=== PATIENT | female | born 1970 | race Caucasian/White ===

== ENCOUNTER 2017-09-04 13:24 | Emergency (ER) | payer OTHER ==
[2017-09-04 13:33] VITALS: BP 157/68; PULSE 69; RESP 20; TEMP 98.2
[2017-09-04] MEDS ORDERED: KETOROLAC 60 MG/2 ML VIAL IM STA (13:45)
[2017-09-04] MEDS ORDERED: ORPHENADRINE 30 MG/ML 2 ML VIAL IM STA (13:45)
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
--- NOTE | 2017-09-04 14:16 | XR ---
EXAMINATION TYPE: XR lumbar spine 2 or 3V DATE OF EXAM: 09/04/2017 CLINICAL HISTORY: pain TECHNIQUE: Three views of the lumbar spine are submitted. COMPARISON: None. FINDINGS: No evidence for compression fracture. Grade 1 anterolisthesis L4 and L5 measuring 3.2 mm in greatest length anterolisthesis L5 on S1 measuring 4.9 mm. Severe facet joint arthropathy. Degenerative disc s pace narrowing lower lumbar spine. IMPRESSION: Degenerative change and spondylolisthesis as noted.
== END 2017-09-04 14:39 | disposition home or self-care (01) ==
LOC: EC 13:24
DX: S39.012A Strain of muscle, fascia and tendon of lower back, initial encounter (principal); M43.16 Spondylolisthesis, lumbar region; M79.7 Fibromyalgia; I10 Essential (primary) hypertension; F31.9 Bipolar disorder, unspecified; F41.9 Anxiety disorder, unspecified; F43.10 Post-traumatic stress disorder, unspecified; Z87.891 Personal history of nicotine dependence; Z79.1 Long term (current) use of non-steroidal anti-inflammatories (NSAID); Z79.51 Long term (current) use of inhaled steroids; Z79.82 Long term (current) use of aspirin; Z79.899 Other long term (current) drug therapy; Z98.890 Other specified postprocedural states; Z88.5 Allergy status to narcotic agent; Z88.8 Allergy status to other drugs, medicaments and biological substances; Z91.012 Allergy to eggs; Z91.048 Other nonmedicinal substance allergy status; X50.1XXA Overexertion from prolonged static or awkward postures, initial encounter; Y92.009 Unspecified place in unspecified non-institutional (private) residence as the place of occurrence of the external cause
CPT/HCPCS: 99283; 96372 ×2; 72100; J2360; J1885

== ENCOUNTER 2017-12-05 13:05 | Emergency (ER) | payer OTHER ==
[2017-12-05 13:12] VITALS: BP 130/65; PULSE 78; RESP 18; TEMP 98
[2017-12-05] MEDS ORDERED: CYCLOBENZAPRINE 10MG STARTER 3 TAB BTL PO STA (13:46)
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
== END 2017-12-05 14:09 | disposition home or self-care (01) ==
LOC: EC 13:05
DX: M54.5 Low back pain (principal); G89.29 Other chronic pain; M79.7 Fibromyalgia; I10 Essential (primary) hypertension; F41.9 Anxiety disorder, unspecified; F32.9 Major depressive disorder, single episode, unspecified; F43.10 Post-traumatic stress disorder, unspecified; Z87.891 Personal history of nicotine dependence; Z79.1 Long term (current) use of non-steroidal anti-inflammatories (NSAID); Z79.82 Long term (current) use of aspirin; Z79.51 Long term (current) use of inhaled steroids; Z79.899 Other long term (current) drug therapy; Z91.048 Other nonmedicinal substance allergy status; Z88.8 Allergy status to other drugs, medicaments and biological substances; Z91.012 Allergy to eggs
CPT/HCPCS: 99283

== ENCOUNTER 2018-03-06 18:05 | Inpatient (IN) | payer MEDICAID, OTHER ==
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
[2018-03-06] MEDS ORDERED: IBUPROFEN 600 MG TAB PO STA (19:44)
[2018-03-06 19:49] LABS: Amphetamine Screen,Urine Not Detected (NotDetected); Barbiturate Screen,Urine Not Detected (NotDetected); Benzodiazepines Screen,Urine Not Detected (NotDetected); Cocaine Screen,Urine Not Detected (NotDetected); Methadone Screen, Urine Not Detected (NotDetected); Opiate Screen,Urine Not Detected (NotDetected); Oxycodone Screen, Urine Not Detected (NotDetected); Phencyclidine Screen,Urine Not Detected (NotDetected); Tricyclic Antidepressant,Urine Not Detected (NotDetected); Urn Cannabinoid Scrn Not Detected (NotDetected)
[2018-03-06 21:02] LABS: Glucose,Whole Blood 106 mg/dL (75-99)
[2018-03-06] MEDS ORDERED: MAG HYDROX/AL HYDROX/SIMETH 30 ML CUP PO PRN (21:24)
[2018-03-06] MEDS ORDERED: ALBUTEROL INHALER 60 PUFF/8 GM INHALER INHALATION PRN (21:34)
[2018-03-06] MEDS ORDERED: ARIPiprazole 15 MG TAB PO SCH (21:45)
[2018-03-06] MEDS ORDERED: INSULIN DETEMIR 100 UNIT/ML 10 ML VIAL SQ SCH (21:45)
[2018-03-06] MEDS: lamoTRIgine 100 MG TAB PO SCH (22:09)
[2018-03-07] MEDS: IBUPROFEN 800 MG TAB PO PRN ×3 (02:15→18:47)
[2018-03-07] MEDS: ACETAMINOPHEN TAB 325 MG TAB PO PRN ×2 (05:51→16:39)
[2018-03-07 06:51] LABS: Glucose,Whole Blood 99 mg/dL (75-99)
[2018-03-07] MEDS: DESVENLAFAXINE SUCCINATE 50 MG TAB.ER.24H PO SCH (08:29)
[2018-03-07] MEDS: FAMOTIDINE 20 MG TAB PO SCH (08:29)
[2018-03-07] MEDS: CALCIUM CARBONATE 500 MG CHEWABLE PO SCH (08:29)
[2018-03-07] MEDS: ATENOLOL 50 MG TAB PO SCH (08:29)
[2018-03-07] MEDS: lamoTRIgine 100 MG TAB PO SCH ×2 (08:29→21:08)
[2018-03-07] MEDS: ATORVASTATIN 40 MG TAB PO SCH (08:29)
[2018-03-07] MEDS: clonazePAM 1 MG TAB PO SCH ×2 (08:29→21:11)
[2018-03-07] MEDS: metFORMIN 500 MG TAB PO SCH ×2 (08:29→21:10)
[2018-03-07] MEDS: LORATADINE 10 MG TAB PO SCH (08:30)
[2018-03-07] MEDS: LISINOPRIL 20 MG TAB PO SCH (08:30)
[2018-03-07] MEDS: CHLORTHALIDONE 25 MG TAB PO SCH (08:30)
[2018-03-07] MEDS: FLUTICASONE 50MCG/SPRAY NASAL 16GM EA NOSTRIL SCH (08:38)
[2018-03-07 08:39] LABS: Basophils % (A) 0 %; Eosinophils # (A) 0.1 k/uL (0-0.7); Eosinophils % (A) 2 %; HCT 35.2 % (34.0-46.0); HGB 11.8 gm/dL (11.4-16.0); Lymphocytes # (A) 1.6 k/uL (1.0-4.8); Lymphocytes % (A) 19 %; MCH 26.8 pg (25.0-35.0); MCHC 33.4 g/dL (31.0-37.0); MCV 80.2 fL (80.0-100.0); Mean Platelet Volume 7.2; Monocytes # (A) 0.4 k/uL (0-1.0); Monocytes % (A) 5 %; Neutrophils # (A) 6.2 k/uL (1.3-7.7); Neutrophils % (A) 73 %; Platelet Count 230 k/uL (150-450); RBC 4.39 m/uL (3.80-5.40); RDW 15.9 % (11.5-15.5); WBC 8.5 k/uL (3.8-10.6)
[2018-03-07] MEDS: ASPIRIN 81 MG PO SCH ×2 (08:39→21:11)
[2018-03-07 08:54] LABS: ALT 35 U/L (9-52); AST 28 U/L (14-36); Albumin 3.8 g/dL (3.5-5.0); Alkaline Phosphatase 83 U/L (38-126); Anion Gap 12 mmol/L; Blood Urea Nitrogen 16 mg/dL (7-17); Calcium 9.5 mg/dL (8.4-10.2); Carbon Dioxide 31 mmol/L (22-30); Chloride 97 mmol/L (98-107); Cholesterol 125 mg/dL (<200); Glucose 96 mg/dL (74-99); HDL Cholesterol 32 mg/dL (40-60); LDL Cholesterol,Calculated 52 mg/dL (0-99); Potassium 4.5 mmol/L (3.5-5.1); Sodium 140 mmol/L (137-145); Total Bilirubin 0.3 mg/dL (0.2-1.3); Total Protein 6.4 g/dL (6.3-8.2); Triglycerides 205 mg/dL (<150)
[2018-03-07] MEDS: MULTIVITAMINS, THERA 1 EACH TAB PO SCH (10:32)
[2018-03-07 10:39] LABS: Glucose,Whole Blood 114 mg/dL (75-99)
[2018-03-07 12:12] LABS: Glucose,Whole Blood 96 mg/dL (75-99)
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
[2018-03-07] MEDS ORDERED: POLYETHYLENE GLYCOL 3350 17 GM POWD.PACK PO PRN (15:06)
--- NOTE | 2018-03-07 15:15 | CONS ---
CONSULTATION DATE OF SERVICE: 03/07/2018. REASON FOR CONSULTATION: Advice regarding hypertension and other medical issues requested by Psychiatry. HISTORY OF PRESENT ILLNESS: This 47-year-old woman with a past history hypertension, hyperlipidemia, history of anxiety, bipolar depression, panic disorder, PTSD [facility] was admitted with for psychiatric evaluation. There is no history of fever, rigors. No headache, loss of consciousness, seizures. The patient is complaining of constipation as well as diffuse aches and pains related to DJD which is being relieved by combination of NSAIDs and analgesics. PAST MEDICAL HISTORY: History of hyperlipidemia, hypertension, history pneumonia, history of fibromyalgia, anxiety, bipolar depression, PTSD. MEDICATIONS: 1. Glucophage 500 mg p.o. b.i.d. 2. Lamictal 150 mg p.o. b.i.d. 3. Klonopin 0.5 mg q.i.d. 4. Vitamin B 1 p.o. daily. 5. Claritin 10 mg. 6. Zestril 20 mg daily. 7. Lantus 10 units subcu q.h.s. 8. Motrin 800 mg t.i.d. p.r.n. 9. Flonase 1 spray daily. 10.Pepcid 20 mg daily. 11.Pristiq ER 100 mg p.o. daily. 12.Calcium carbonate 500 mg p.o. daily. 13.Atenolol chlorthalidone 50 mg. 14.Ecotrin 81 mg daily. 15.Ventolin HFA 1-2 puffs q.i.d. p.r.n. 16.Abilify 15 mg q.h.s. ALLERGIES: Are ADHESIVE TAPES, SAPHRIS, EGG, TALWIN, SEROQUEL AND BRINTELLIX. FAMILY HISTORY: History of CHF noted in the family. SOCIAL HISTORY: History of smoking previously. No history of current alcohol intake. REVIEW OF SYSTEMS: ENT: No diminished vision or hearing. CARDIOVASCULAR: No angina. RESPIRATORY: No cough. GI: As mentioned. : No dysuria. NERVOUS SYSTEM: No numbness or weakness. ALLERGY/IMMUNOLOGY: No lymphadenopathy in neck or axillae. MUSCULOSKELETAL: As mentioned earlier. HEMATOLOGY: No history of anemia. ENDOCRINE: Diabetes. CONSTITUTIONAL: As mentioned earlier. DERMATOLOGY: Negative. RHEUMATOLOGY: Negative. PSYCHIATRY: As mentioned earlier. PHYSICAL EXAMINATION: Alert, oriented x3. Pulse 65, blood pressure 120/50, respirations 16, temperature 97.8, pulse ox 96% on room air. HEENT: Conjunctivae normal. Oral mucosa moist. Neck is no jugular venous distention. No carotid bruit. No lymph node enlargement. CARDIOVASCULAR: S1, S2. No S3, no S4. RESPIRATORY: Breath sounds diminished in the bases. No rhonchi. No crackles. ABDOMEN: Soft, obese, nontender. No mass palpable. LEGS: No edema, no swelling. NERVOUS SYSTEM: Higher function as mentioned earlier, moves all 4 limbs, no focal motor or sensory deficit. Cranial nerves 2 through 12 grossly intact. Moves all 4 limbs. no nystagmus No diplopia. No facial deviation. Power is 5/5. Gait is normal. No sensory cerebellar dysfunction. LABS: CBC within normal limits, otherwise glucose 114 and triglycerides 205. ASSESSMENT: 1. Hypertension. 2. Hyperlipidemia. 3. History of pneumonia. 4. History of degenerative joint disease and back pain. 5. Constipation. 6. Anxiety, bipolar, depression, posttraumatic stress disorder. 7. History of nicotine dependence. 8. Obesity with body mass index 48.7. 9. History of fibromyalgia. RECOMMENDATION: This 47-year-old woman with a past history of multiple medical issues, at this time I recommend to continue current management and symptomatic treatment. The blood sugar has been fluctuating between 90 and 100 at this time, appears to be well controlled. Recommend to continue the home dose of insulin, Accu-Cheks a.c. and at bedtime and NovoLog scale. Otherwise, continue the rest of medications and recommend close follow up with the primary physician in the outpatient setting. We will follow the patient closely with you. Thank you for letting us participate in the care of this patient. MMODL / IJN: [id number] / MARIA ELENA
[2018-03-07] MEDS: INSULIN ASPART 100 UNIT/ML 1 ML 10 ML VIAL SQ SCH ×2 (17:40→21:04)
[2018-03-07 17:41] LABS: Glucose,Whole Blood 91 mg/dL (75-99)
[2018-03-07 20:17] LABS: Glucose,Whole Blood 110 mg/dL (75-99)
[2018-03-07 20:31] LABS: Hemoglobin A1C 5.8 % (4.0-6.0)
[2018-03-07] MEDS: INSULIN DETEMIR 100 UNIT/ML 10 ML VIAL SQ SCH (21:08)
[2018-03-07] MEDS: MIRTAZAPINE 15 MG TAB PO SCH (21:10)
[2018-03-07] MEDS: ARIPiprazole 5 MG TAB PO SCH (21:17)
[2018-03-07] MEDS: MAGNESIUM HYDROXIDE 2,400 MG/10 ML CUP PO PRN (22:06)
[2018-03-08 05:31] LABS: Glucose,Whole Blood 114 mg/dL (75-99)
[2018-03-08] MEDS: IBUPROFEN 800 MG TAB PO PRN ×2 (05:40→15:38)
[2018-03-08] MEDS: INSULIN ASPART 100 UNIT/ML 1 ML 10 ML VIAL SQ SCH ×4 (07:39→20:22)
[2018-03-08] MEDS: DESVENLAFAXINE SUCCINATE 50 MG TAB.ER.24H PO SCH (09:30)
[2018-03-08] MEDS: lamoTRIgine 100 MG TAB PO SCH ×2 (09:31→20:21)
[2018-03-08] MEDS: CALCIUM CARBONATE 500 MG CHEWABLE PO SCH (09:31)
[2018-03-08] MEDS: CHLORTHALIDONE 25 MG TAB PO SCH (09:31)
[2018-03-08] MEDS: LISINOPRIL 20 MG TAB PO SCH (09:31)
[2018-03-08] MEDS: ASPIRIN 81 MG PO SCH (09:31)
[2018-03-08] MEDS: FAMOTIDINE 20 MG TAB PO SCH (09:32)
[2018-03-08] MEDS: clonazePAM 1 MG TAB PO SCH ×2 (09:32→20:20)
[2018-03-08] MEDS: LORATADINE 10 MG TAB PO SCH (09:32)
[2018-03-08] MEDS: ATENOLOL 50 MG TAB PO SCH (09:32)
[2018-03-08] MEDS: metFORMIN 500 MG TAB PO SCH ×2 (09:32→20:20)
[2018-03-08] MEDS: MULTIVITAMINS, THERA 1 EACH TAB PO SCH (09:32)
[2018-03-08] MEDS: ATORVASTATIN 40 MG TAB PO SCH (09:32)
[2018-03-08] MEDS: FLUTICASONE 50MCG/SPRAY NASAL 16GM EA NOSTRIL SCH (09:41)
--- NOTE | 2018-03-08 11:19 | P.PN ---
Progress Note - Text Interval history: The patient is found in the dining room she follows me to an interview room. She reports her mood is still depressed and she has hopeless thinking but she feels safe here in the hospital. She states with the addition of Remeron her sleep was excellent last evening. We discussed our continued plan of tapering off of Abilify in titrating the Remeron further. She has been participating in groups. She has no questions or concerns regarding her medications. Staff indicate that the patient has been cooperative and is participating. Mental status exam: The patient is an obese female appearing her stated age. She is mobile with a wheelchair. Eye contact is appropriate speech is fluent spontaneous nonpressured. She reports a depressed mood with some hopeless thinking but feels safe here in the hospital. She is reporting no homicidal ideation intent or plan. She is reporting no auditory or visual hallucinations or specific delusions. There is no observed evidence of psychosis. Insight and judgment grossly intact. Plan: The patient will continue on her current medications. We will monitor her for safety. It seems that she will primarily respond to the milieu given her personality disorder symptoms. Vital signs reviewed. Anticipate she may be appropriate for discharge early next week.
[2018-03-08] MEDS: ACETAMINOPHEN TAB 325 MG TAB PO PRN (12:19)
[2018-03-08 12:39] LABS: Glucose,Whole Blood 90 mg/dL (75-99)
[2018-03-08] MEDS: MAGNESIUM HYDROXIDE 2,400 MG/10 ML CUP PO PRN (13:52)
[2018-03-08 17:05] LABS: Glucose,Whole Blood 107 mg/dL (75-99)
[2018-03-08 17:53] VITALS: BMI 48.6
[2018-03-08 19:44] LABS: Glucose,Whole Blood 141 mg/dL (75-99)
[2018-03-08] MEDS: MIRTAZAPINE 15 MG TAB PO SCH (20:21)
[2018-03-08] MEDS: ARIPiprazole 5 MG TAB PO SCH (20:22)
[2018-03-08] MEDS: INSULIN DETEMIR 100 UNIT/ML 10 ML VIAL SQ SCH (20:26)
[2018-03-09] MEDS: IBUPROFEN 800 MG TAB PO PRN ×3 (01:21→14:42)
[2018-03-09 05:24] LABS: Glucose,Whole Blood 100 mg/dL (75-99)
[2018-03-09] MEDS: INSULIN ASPART 100 UNIT/ML 1 ML 10 ML VIAL SQ SCH ×4 (08:06→20:37)
[2018-03-09] MEDS: FLUTICASONE 50MCG/SPRAY NASAL 16GM EA NOSTRIL SCH (08:37)
[2018-03-09] MEDS: ASPIRIN 81 MG PO SCH (08:37)
[2018-03-09] MEDS: MULTIVITAMINS, THERA 1 EACH TAB PO SCH (08:37)
[2018-03-09] MEDS: LORATADINE 10 MG TAB PO SCH (08:38)
[2018-03-09] MEDS: clonazePAM 1 MG TAB PO SCH ×2 (08:38→20:40)
[2018-03-09] MEDS: metFORMIN 500 MG TAB PO SCH ×2 (08:38→20:40)
[2018-03-09] MEDS: FAMOTIDINE 20 MG TAB PO SCH (08:38)
[2018-03-09] MEDS: LISINOPRIL 20 MG TAB PO SCH (08:38)
[2018-03-09] MEDS: lamoTRIgine 100 MG TAB PO SCH ×2 (08:38→20:38)
[2018-03-09] MEDS: ATENOLOL 50 MG TAB PO SCH (08:40)
[2018-03-09] MEDS: CHLORTHALIDONE 25 MG TAB PO SCH (08:40)
[2018-03-09] MEDS: CALCIUM CARBONATE 500 MG CHEWABLE PO SCH (08:40)
[2018-03-09] MEDS: ATORVASTATIN 40 MG TAB PO SCH (08:40)
[2018-03-09] MEDS: DESVENLAFAXINE SUCCINATE 50 MG TAB.ER.24H PO SCH (08:40)
[2018-03-09] MEDS: ACETAMINOPHEN TAB 325 MG TAB PO PRN ×2 (08:41→14:44)
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
[2018-03-09 12:48] LABS: Glucose,Whole Blood 78 mg/dL (75-99)
[2018-03-09 17:40] LABS: Glucose,Whole Blood 101 mg/dL (75-99)
[2018-03-09 19:44] LABS: Glucose,Whole Blood 129 mg/dL (75-99)
[2018-03-09] MEDS: PRAZOSIN 1 MG CAP PO SCH (20:38)
[2018-03-09] MEDS: ARIPiprazole 5 MG TAB PO SCH (20:40)
[2018-03-09] MEDS: MIRTAZAPINE 15 MG TAB PO SCH (20:43)
[2018-03-09] MEDS: INSULIN DETEMIR 100 UNIT/ML 10 ML VIAL SQ SCH (22:01)
[2018-03-10] MEDS: IBUPROFEN 800 MG TAB PO PRN ×3 (02:52→20:16)
[2018-03-10] MEDS: ACETAMINOPHEN TAB 325 MG TAB PO PRN (02:53)
[2018-03-10 06:26] LABS: Glucose,Whole Blood 107 mg/dL (75-99)
[2018-03-10] MEDS: FAMOTIDINE 20 MG TAB PO SCH (08:50)
[2018-03-10] MEDS: CHLORTHALIDONE 25 MG TAB PO SCH (08:50)
[2018-03-10] MEDS: DESVENLAFAXINE SUCCINATE 50 MG TAB.ER.24H PO SCH (08:50)
[2018-03-10] MEDS: metFORMIN 500 MG TAB PO SCH ×2 (08:50→20:38)
[2018-03-10] MEDS: LISINOPRIL 20 MG TAB PO SCH (08:50)
[2018-03-10] MEDS: ASPIRIN 81 MG PO SCH (08:50)
[2018-03-10] MEDS: CALCIUM CARBONATE 500 MG CHEWABLE PO SCH (08:51)
[2018-03-10] MEDS: clonazePAM 1 MG TAB PO SCH ×2 (08:51→20:38)
[2018-03-10] MEDS: LORATADINE 10 MG TAB PO SCH (08:51)
[2018-03-10] MEDS: ATORVASTATIN 40 MG TAB PO SCH (08:51)
[2018-03-10] MEDS: ATENOLOL 50 MG TAB PO SCH (08:52)
[2018-03-10] MEDS: INSULIN ASPART 100 UNIT/ML 1 ML 10 ML VIAL SQ SCH ×4 (08:54→20:09)
[2018-03-10] MEDS: lamoTRIgine 100 MG TAB PO SCH ×2 (10:30→20:36)
[2018-03-10] MEDS: FLUTICASONE 50MCG/SPRAY NASAL 16GM EA NOSTRIL SCH (10:30)
[2018-03-10] MEDS: MULTIVITAMINS, THERA 1 EACH TAB PO SCH (11:47)
[2018-03-10 12:50] LABS: Glucose,Whole Blood 122 mg/dL (75-99)
--- NOTE | 2018-03-10 12:51 | P.PN ---
Progress Note - Text Progress Note Date: 03/10/18 Interval History: I reviewed the medical record and interviewed the patient. She denied experiencing nightmares last night and denied experiencing lightheadedness or sedation this morning. She feels less depressed but attributed the change in her mood to being in a therapeutic and supportive environment. She stated that she "usually" feels better when she was in the hospital away from her stresses. She lives with her disabled 20-year-old son in rental they moved into [facility]. She is responsible for the household. She complains that he contributes little to the maintenance of the home or picks up after himself. She speak with him on the telephone several times per day and seems overprotective and controlling. However, she boasted that he is doing well at home alone. Mental Status Exam: She presented as a casually groomed and neatly dressed 3- year-old female who was moderately obese. She was sitting in a wheelchair and able to move about in a wheelchair. She had a bright facial expression. She showed no active family of psychomotor activity. Her speech was spontaneous with normal rate, rhythm and volume. Her affect was stable and appropriate. She denied current suicidal ideation or wishes. She denied homicidal ideation. She denied feeling hopeless, helpless or worthless. She ruminated about her son and her responsibilities. She did not express phobias, ideas reference, paranoid ideation or delusions. Her thinking was abstract and associations were coherent and logical. She denied hallucinations and did not appear to be responding to internal stimuli. Plan: Continue inpatient hospitalization. Continue safety precautions. Continue current psychotropic medications-Abilify 5 mg at bedtime, clonazepam 1 mg twice a day, Pristiq ER 100 mg daily, Lamictal 150 mg twice a day, Remeron 7.5 mg at bedtime and Minipress 2 mg at bedtime. Continue other medications as recommended by the bridal consultant windlace machine operator. Encourage continued participation in therapeutic activities. Evaluate clinical status response to treatment daily basis.
[2018-03-10 17:34] LABS: Glucose,Whole Blood 103 mg/dL (75-99)
[2018-03-10 20:20] LABS: Glucose,Whole Blood 145 mg/dL (75-99)
[2018-03-10] MEDS: ARIPiprazole 5 MG TAB PO SCH (20:36)
[2018-03-10] MEDS: MIRTAZAPINE 15 MG TAB PO SCH (20:37)
[2018-03-10] MEDS: PRAZOSIN 1 MG CAP PO SCH (20:38)
[2018-03-10] MEDS: INSULIN DETEMIR 100 UNIT/ML 10 ML VIAL SQ SCH (20:38)
[2018-03-11] MEDS: ACETAMINOPHEN TAB 325 MG TAB PO PRN ×2 (01:38→15:34)
[2018-03-11] MEDS: IBUPROFEN 800 MG TAB PO PRN ×3 (04:28→20:43)
[2018-03-11 07:04] LABS: Glucose,Whole Blood 121 mg/dL (75-99)
[2018-03-11] MEDS: INSULIN ASPART 100 UNIT/ML 1 ML 10 ML VIAL SQ SCH ×4 (07:59→20:46)
[2018-03-11] MEDS: ASPIRIN 81 MG PO SCH (09:09)
[2018-03-11] MEDS: lamoTRIgine 100 MG TAB PO SCH ×2 (09:09→20:44)
[2018-03-11] MEDS: CHLORTHALIDONE 25 MG TAB PO SCH (09:09)
[2018-03-11] MEDS: DESVENLAFAXINE SUCCINATE 50 MG TAB.ER.24H PO SCH (09:09)
[2018-03-11] MEDS: FAMOTIDINE 20 MG TAB PO SCH (09:09)
[2018-03-11] MEDS: FLUTICASONE 50MCG/SPRAY NASAL 16GM EA NOSTRIL SCH (09:09)
[2018-03-11] MEDS: CALCIUM CARBONATE 500 MG CHEWABLE PO SCH (09:09)
[2018-03-11] MEDS: clonazePAM 1 MG TAB PO SCH ×2 (09:10→20:44)
[2018-03-11] MEDS: ATENOLOL 50 MG TAB PO SCH (09:10)
[2018-03-11] MEDS: ATORVASTATIN 40 MG TAB PO SCH (09:10)
[2018-03-11] MEDS: LORATADINE 10 MG TAB PO SCH (09:10)
[2018-03-11] MEDS: LISINOPRIL 20 MG TAB PO SCH (09:14)
[2018-03-11] MEDS: metFORMIN 500 MG TAB PO SCH ×2 (09:14→20:44)
--- NOTE | 2018-03-11 10:00 | P.PN ---
Progress Note - Text Interval history: The patient is found in the hallway she follows me to an interview room. She reports that things are improving here in the mental health unit. She feels her mood is better. She feels safe in the hospital. She feels that suicidal and hopelessness thoughts are remitting. We discussed discontinuing the Abilify in titrating the Remeron this evening and she is agreeable. She is looking forward to participating in DBT once discharged. She expresses some fearfulness about having upcoming back surgery. Mental status exam: The patient is an overweight female appearing her stated age. She is dressed in her own clothing she seated in her wheelchair. She is pleasant and cooperative. She reports her moods improving. Hopelessness thinking and suicidal thoughts are resolving. She is reporting no homicidal ideation. She reports no auditory or visual hallucinations today or any specific delusions there is no overt evidence of psychosis. Thought process is linear she demonstrates no tangential thinking loose associations or flight of ideas. She does not appear hypomanic or manic. She demonstrates no verbal or physical aggressiveness. She remains oriented to person place and date. Plan: The patient will continue on her current medications however we will discontinue the Abilify and titrate Remeron to 15 mg at bedtime. We will consider discharging her in the next 1-2 days if she demonstrates sufficient clinical improvement/stability. We will continue to monitor her for safety. She has been participating in the milieu appropriately.
[2018-03-11 12:38] LABS: Glucose,Whole Blood 91 mg/dL (75-99)
[2018-03-11] MEDS: MULTIVITAMINS, THERA 1 EACH TAB PO SCH (12:53)
[2018-03-11 17:56] LABS: Glucose,Whole Blood 98 mg/dL (75-99)
[2018-03-11 20:02] LABS: Glucose,Whole Blood 123 mg/dL (75-99)
[2018-03-11] MEDS: PRAZOSIN 1 MG CAP PO SCH (20:44)
[2018-03-11 20:48] VITALS: RESP 18
[2018-03-11] MEDS ORDERED: MIRTAZAPINE 15 MG TAB PO SCH (21:00)
[2018-03-11] MEDS: INSULIN DETEMIR 100 UNIT/ML 10 ML VIAL SQ SCH (21:03)
[2018-03-12] MEDS: IBUPROFEN 800 MG TAB PO PRN ×2 (04:41→13:52)
[2018-03-12 04:44] VITALS: BP 120/64; PULSE 79; TEMP 97.7
[2018-03-12 04:47] LABS: Glucose,Whole Blood 108 mg/dL (75-99)
[2018-03-12] MEDS: INSULIN ASPART 100 UNIT/ML 1 ML 10 ML VIAL SQ SCH ×2 (08:26→13:13)
[2018-03-12] MEDS: DESVENLAFAXINE SUCCINATE 50 MG TAB.ER.24H PO SCH (08:36)
[2018-03-12] MEDS: CHLORTHALIDONE 25 MG TAB PO SCH (08:37)
[2018-03-12] MEDS: metFORMIN 500 MG TAB PO SCH (08:37)
[2018-03-12] MEDS: CALCIUM CARBONATE 500 MG CHEWABLE PO SCH (08:37)
[2018-03-12] MEDS: LORATADINE 10 MG TAB PO SCH (08:37)
[2018-03-12] MEDS: ATENOLOL 50 MG TAB PO SCH (08:37)
[2018-03-12] MEDS: ATORVASTATIN 40 MG TAB PO SCH (08:37)
[2018-03-12] MEDS: clonazePAM 1 MG TAB PO SCH (08:38)
[2018-03-12] MEDS: LISINOPRIL 20 MG TAB PO SCH (08:38)
[2018-03-12] MEDS: lamoTRIgine 100 MG TAB PO SCH (08:38)
[2018-03-12] MEDS: FAMOTIDINE 20 MG TAB PO SCH (08:38)
[2018-03-12] MEDS: ASPIRIN 81 MG PO SCH (08:38)
[2018-03-12] MEDS: FLUTICASONE 50MCG/SPRAY NASAL 16GM EA NOSTRIL SCH (08:39)
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
[2018-03-12] MEDS: ACETAMINOPHEN TAB 325 MG TAB PO PRN (10:32)
[2018-03-12] MEDS: MULTIVITAMINS, THERA 1 EACH TAB PO SCH (11:47)
[2018-03-12 12:33] LABS: Glucose,Whole Blood 99 mg/dL (75-99)
== END 2018-03-12 14:41 | disposition home or self-care (01) | DRG 885 ==
LOC: EC 18:05 → 3MHU 21:04
PROVIDERS: ADMIT Psychiatry & Neurology Psychiatry; ATTEND Psychiatry & Neurology Psychiatry
DX: F31.81 Bipolar II disorder (principal); R45.851 Suicidal ideations; Z68.42 Body mass index [BMI] 45.0-49.9, adult; E11.9 Type 2 diabetes mellitus without complications; E66.9 Obesity, unspecified; E78.5 Hyperlipidemia, unspecified; F41.0 Panic disorder [episodic paroxysmal anxiety]; F43.12 Post-traumatic stress disorder, chronic; G43.909 Migraine, unspecified, not intractable, without status migrainosus; G89.29 Other chronic pain; I10 Essential (primary) hypertension; K59.00 Constipation, unspecified; M19.90 Unspecified osteoarthritis, unspecified site; M79.7 Fibromyalgia; Z79.82 Long term (current) use of aspirin; Z82.49 Family history of ischemic heart disease and other diseases of the circulatory system; Z87.01 Personal history of pneumonia (recurrent); Z87.891 Personal history of nicotine dependence; Z79.1 Long term (current) use of non-steroidal anti-inflammatories (NSAID); Z79.4 Long term (current) use of insulin; Z79.899 Other long term (current) drug therapy; Z88.8 Allergy status to other drugs, medicaments and biological substances; Z91.012 Allergy to eggs; F60.3 Borderline personality disorder; M54.9 Dorsalgia, unspecified
CPT/HCPCS: 36415; 80053; 80061; 80306; 81025; 82075; 83036; 84443; 85025; 99285

== ENCOUNTER 2019-01-27 13:57 | Observation (INO) | payer OTHER ==
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
[2019-01-27 14:21] LABS: ALT 74 U/L (9-52); AST 59 U/L (14-36); Albumin 3.9 g/dL (3.5-5.0); Alkaline Phosphatase 89 U/L (38-126); Anion Gap 8 mmol/L; Blood Urea Nitrogen 20 mg/dL (7-17); Calcium 9.2 mg/dL (8.4-10.2); Carbon Dioxide 26 mmol/L (22-30); Chloride 104 mmol/L (98-107); Glucose 148 mg/dL (74-99); Magnesium 1.9 mg/dL (1.6-2.3); Potassium 4.4 mmol/L (3.5-5.1); Sodium 138 mmol/L (137-145); Total Bilirubin 0.3 mg/dL (0.2-1.3); Total Protein 6.6 g/dL (6.3-8.2)
[2019-01-27 14:24] LABS: Basophils % (A) 0 %; Eosinophils % (A) 0 %; HCT 35.7 % (34.0-46.0); HGB 11.5 gm/dL (11.4-16.0); Hypochromasia Slight; Lymphocytes # (A) 2.1 k/uL (1.0-4.8); Lymphocytes % (A) 19 %; MCH 26.9 pg (25.0-35.0); MCHC 32.2 g/dL (31.0-37.0); MCV 83.7 fL (80.0-100.0); Mean Platelet Volume 7.2; Monocytes # (A) 0.5 k/uL (0-1.0); Monocytes % (A) 4 %; Neutrophils # (A) 7.8 k/uL (1.3-7.7); Neutrophils % (A) 74 %; Platelet Count 314 k/uL (150-450); RBC 4.27 m/uL (3.80-5.40); RDW 15.1 % (11.5-15.5); WBC 10.6 k/uL (3.8-10.6)
[2019-01-27 14:26] LABS: D-Dimer 0.34 mg/L FEU (<0.60); INR 0.9 (<1.2); Partial Thromboplastin Time 24.2 sec (22.0-30.0); Prothrombin Time 9.7 sec (9.0-12.0)
--- NOTE | 2019-01-27 14:48 | XR ---
EXAMINATION TYPE: XR chest 2V DATE OF EXAM: 01/27/2019 COMPARISON: 07/23/2016 HISTORY: 48-year-old female with chest pain TECHNIQUE: PA and lateral views FINDINGS: Heart normal size. Aorta and pulmonary vasculature within normal limits. Mild interstitial prominence . No consolidation or pleural effusion. IMPRESSION: Chronic changes without acute cardiopulmonary process.
[2019-01-27] MEDS ORDERED: HEPARIN SODIUM,PORCINE 5,000 UNIT/ML 1 ML VIAL IV PRN (14:55)
[2019-01-27] MEDS ORDERED: NITROGLYCERIN OINT 1 INCH/GM PACKET TOPICAL STA (14:55)
[2019-01-27] MEDS ORDERED: HEPARIN SODIUM,PORCINE 5,000 UNIT/ML 1 ML VIAL IV ONE (14:55)
[2019-01-27] MEDS ORDERED: HEPARIN SOD,PORK IN 0.45% NACL 25,000 UNIT in 0.45% NACL 1 250ML.BAG IV SCH (15:00)
[2019-01-27] MEDS ORDERED: NITROGLYCERIN SL TABS 0.4 MG TAB SUBLINGUAL PRN (15:20)
[2019-01-27] MEDS ORDERED: IBUPROFEN 800 MG TAB PO PRN (15:22)
[2019-01-27] MEDS ORDERED: ALBUTEROL NEBULIZED 2.5 MG/3 ML INHALATION PRN (15:22)
[2019-01-27] MEDS ORDERED: clonazePAM 0.5 MG TAB PO PRN (15:22)
[2019-01-27] MEDS ORDERED: ACETAMINOPHEN TAB 325 MG TAB PO PRN (15:22)
[2019-01-27] MEDS ORDERED: ACETAMINOPHEN TAB 500 MG TAB PO STA (15:35)
[2019-01-27 16:52] LABS: Glucose,Whole Blood 120 mg/dL (75-99)
[2019-01-27] MEDS: metFORMIN 500 MG TAB PO SCH (17:28)
[2019-01-27] MEDS ORDERED: NALOXONE 0.4 MG/ML 1 ML VIAL IV PRN (17:41)
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
[2019-01-27] MEDS: oxyCODONE-APAP 5-325MG 1 EACH TAB PO PRN ×2 (17:51→23:14)
[2019-01-27] MEDS: GABAPENTIN 300 MG CAP PO SCH (20:53)
[2019-01-27] MEDS: lamoTRIgine 100 MG TAB PO SCH (20:54)
[2019-01-27] MEDS: INSULIN DETEMIR (LEVEMIR) 100 UNIT/ML SYR SQ SCH (20:54)
[2019-01-27] MEDS ORDERED: traZODone HCL 50 MG TAB PO SCH (21:00)
[2019-01-27 21:09] LABS: Glucose,Whole Blood 90 mg/dL (75-99)
[2019-01-28 05:39] LABS: Basophils # (A) 0.1 k/uL (0-0.2); Basophils % (A) 1 %; Eosinophils # (A) 0.1 k/uL (0-0.7); Eosinophils % (A) 1 %; HCT 35.5 % (34.0-46.0); HGB 11.3 gm/dL (11.4-16.0); Hypochromasia Slight; Lymphocytes # (A) 2.4 k/uL (1.0-4.8); Lymphocytes % (A) 28 %; MCH 26.8 pg (25.0-35.0); MCHC 31.8 g/dL (31.0-37.0); MCV 84.3 fL (80.0-100.0); Mean Platelet Volume 6.9; Monocytes # (A) 0.4 k/uL (0-1.0); Monocytes % (A) 4 %; Neutrophils # (A) 5.5 k/uL (1.3-7.7); Neutrophils % (A) 65 %; Platelet Count 259 k/uL (150-450); RDW 15.6 % (11.5-15.5); WBC 8.5 k/uL (3.8-10.6)
[2019-01-28 05:47] LABS: Cholesterol 107 mg/dL (<200); HDL Cholesterol 26 mg/dL (40-60); LDL Cholesterol,Calculated 39 mg/dL (0-99); Triglycerides 210 mg/dL (<150)
[2019-01-28 07:01] LABS: Glucose,Whole Blood 105 mg/dL (75-99)
[2019-01-28] MEDS: metFORMIN 500 MG TAB PO SCH (08:24)
[2019-01-28] MEDS ORDERED: FLUTICASONE 50MCG/SPRAY NASAL 16GM EA NOSTRIL SCH (09:00)
[2019-01-28] MEDS ORDERED: ATORVASTATIN 10 MG TAB PO SCH (09:00)
[2019-01-28] MEDS ORDERED: CHOLECALCIFEROL 1,000 UNIT TAB PO SCH (09:00)
[2019-01-28] MEDS ORDERED: LISINOPRIL 20 MG TAB PO SCH (09:00)
[2019-01-28] MEDS ORDERED: ASPIRIN 325 MG TAB PO SCH (09:00)
[2019-01-28] MEDS ORDERED: DESVENLAFAXINE SUCCINATE 50 MG TAB.ER.24H PO SCH (09:00)
[2019-01-28] MEDS ORDERED: LORATADINE 10 MG TAB PO SCH (09:00)
[2019-01-28] MEDS ORDERED: FENOFIBRATE 160 MG TAB PO SCH (09:00)
[2019-01-28] MEDS ORDERED: ASPIRIN 81 MG PO SCH (09:00)
[2019-01-28] MEDS ORDERED: FAMOTIDINE 20 MG TAB PO SCH (09:00)
[2019-01-28] MEDS ORDERED: DOBUTamine DRIP for NUC MED 500 MG in DEXTROSE/WATER 1 250ML.BAG IV ONE (11:31)
[2019-01-28 11:32] LABS: Glucose,Whole Blood 101 mg/dL (75-99)
[2019-01-28] MEDS: INSULIN DETEMIR (LEVEMIR) 100 UNIT/ML SYR SQ SCH (11:39)
--- NOTE | 2019-01-28 11:50 | ECHOF ---
Referral Reason:Chest pain MEASUREMENTS -------- HEIGHT: 157.5 cm WEIGHT: 119.7 kg BP: 125/80 RVIDd: 3.4 cm (< 3.3) IVSd: 0.9 cm (0.6 - 1.1) LVIDd: 4.8 cm (3.9 - 5.3) LVPWd: 0.9 cm (0.6 - 1.1) IVSs: 1.3 cm LVIDs: 3.7 cm LVPWs: 1.5 cm LAESV Index (A-L): 35.35 ml/m Ao Diam: 2.7 cm (2.0 - 3.7) AV Cusp: 2.0 cm (1.5 - 2.6) LA Diam: 4.6 cm (2.7 - 3.8) MV E [place]: 0.79 m/s MV DecT: 242 ms MV A [place]: 0.81 m/s MV E/A Ratio: 0.98 RAP: 5.00 mmHg RVSP: 22.91 mmHg FINDINGS -------- Sinus rhythm. This was a technically adequate study. The left ventricular size is normal. Left ventricular wall thickness is normal. Overall left vent ricular systolic function is normal with, an EF between 55 - 60 %. The right ventricle is mildly enlarged. LA is moderately dilated 34-39 ml/m2 The right atrial size is normal. Interatrial and interventricular septum intact. The aortic valve is trileaflet and appears structurally normal. The mitral valve is normal. Mild mitral regurgitation is present. The tricuspid valve appears structurally normal. Mild tricuspid regurgitation present. The right ventricular systolic pressure, as measured by Doppler, is 22.91mmHg. The pulmonic valve is normal. The aortic root size is normal. Normal inferior vena cava with normal inspiratory collapse consistent with estimated right atrial pre ssure of 5 mmHg. Echo free space indicative of a pericardial fat pad. CONCLUSIONS -------- 1. Sinus rhythm. 2. This was a technically adequate study. 3. The left ventricular size is normal. 4. Left ventricular wall thickness is normal. 5. Overall left ventricular systolic function is normal with, an EF between 55 - 60 %. 6. The right ventricle is mildly enlarged. 7. LA is moderately dilated 34-39 ml/m2 8. The right atrial size is normal. 9. Interatrial and interventricular septum intact. 10. The aortic valve is trileaflet and appears structurally normal. 11. The mitral valve is normal. 12. Mild mitral regurgitation is present. 13. The tricuspid valve appears structurally normal. 14. Mild tricuspid regurgitation present. 15. The right ventricular systolic pressure, as measured by Doppler, is 22.91mmHg. 16. The pulmonic valve is normal. 17. The aortic root size is normal. 18. Normal inferior vena cava with normal inspiratory collapse consistent with estimated right atrial pressure of 5 mmHg. 19. Echo free space indicative of a pericardial fat pad. [employer]SEM[employer]ER: Jeanette Armendariz RDCS
[2019-01-28] MEDS ORDERED: MULTIVITAMINS, THERA 1 EACH TAB PO SCH (12:00)
[2019-01-28 12:48] VITALS: BP 99/65; PULSE 60; RESP 16; TEMP 97.6
[2019-01-28] MEDS ORDERED: ATROPINE SULFATE 0.1 MG/ML 10ML SYRINGE ONE (12:50)
[2019-01-28] MEDS: lamoTRIgine 100 MG TAB PO SCH (13:16)
[2019-01-28] MEDS: GABAPENTIN 300 MG CAP PO SCH (13:16)
--- NOTE | 2019-01-28 13:25 | ECHOS ---
STRESS ECHOCARDIOGRAM DATE OF SERVICE: 01/28/2019 INDICATIONS: Chest pain/shortness of breath. MEDICATIONS: BASELINE HEART RATE: 63 BASELINE BLOOD PRESSURE: 109/71 MAXIMUM HEART RATE: 135 MAXIMUM BLOOD PRESSURE: 208/65 85% MPHR: 145 100% MPHR: 171 METS: MAXIMUM STAGE REACHED: TOTAL EXERCISE TIME: CLINICAL INFORMATION: A dobutamine echocardiographic study was performed. Patient received dobutamine. With that the blood pressure went up and she also received atropine. The peak heart rate of 135 was achieved. Maximum blood pressure of 208/65 mmHg was noted. Patient did not complain of any chest pain during the test. Resting EKG shows normal sinus rhythm with normal NE interval and QRS duration and normal ST-T waves. No ST-segment depression suggestive of ischemia was noted. The baseline echocardiographic images reveal normal left ventricular chamber size with normal left ventricular systolic function. At the peak heart rate, normal increase in the wall thickness and contractility is noted. FINAL IMPRESSION: This dobutamine stress echocardiographic study is negative for stress-induced ischemia. EKG portion of the stress test is not suggestive of ischemia. The patient became nauseated during dobutamine infusion. MMODL / IJN: [id number] /
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
--- NOTE | 2019-01-28 15:43 | P.DS ---
Providers Date of admission: 01/27/19 15:20 Expected date of discharge: 01/28/19 Attending physician: Arelis Serrano MD Consults: 01/27/19 15:20 Consult Physician Urgent Consulting Provider: Casey Lombardo Consult Reason/Comments: Chest pain Do you want consulting provider notified?: Yes Primary care physician: [facility] Hospital Course: 48-year-old female with PMH of fibromyalgia, hypertension, hyperlipidemia, anxiety/bipolar/depression presents to the ED for chest pain. Patient reports sitting up talking to her son on the phone. She decided to lay down on her left side when she started experiencing excruciating chest pain. Chest pain is left-sided, constant, 8-9 out of 10 in severity. Patient reports the pain to be stabbing and pressure-like in nature. Patient reports that the pain radiated outwards from the left side. Patient states that the pain is worsened with deep inspiration. No alleviating factors. Of note, patient reports smoking 1 pack of cigarettes daily for the past 20 years, quit in 2003. Of note, patient reports having the flu one week ago. She denies any headache, lower extremity edema, nausea, vomiting, fever, cough, shortness of breath, palpitations, changes in urination or bowel habits. No changes in appetite or weight. She denies any dizziness, numbness/weakness/tingling of the extremities. Patient states her last echocardiogram was 4 years ago. In the ED, CBC was unremarkable. Coagulation panel was negative. CMPshowed glucose of 148, AST of 59 and ALT of 74. Troponin was less than 0.012, EKG showing sinus rhythm with first-degree AV block. Chest x-ray showed chronic changes without acute disease. Patient is admitted for chest pain, started on heparin drip, cardiology consulted. Patient's chest pain was thought to be atypical, likely pleuritic given flu symptoms 2 weeks prior to presentation. Troponin was less than 0.0123 with EKG showing sinus rhythm with first-degree AV block. Chest x-ray was negative for acute process. Patient was continued on aspirin and Lipitor. Initially started on heparin drip which was discontinued due to its atypical nature. Cardiology was consulted and recommended echocardiogram and stress testing. Stress test was negative. Echocardiogram showed EF between 55 and 60% with normal wall motion. Otherwise, her home medications were resumed for fibromyalgia, hypertension, hyperlipidemia, anxiety, depression and bipolar disorder. Patient was seen and examined prior to discharge. No acute events overnight. Patient reports significant improvement in her chest pain, but still there, worsened with deep inspiration. She denies any shortness of breath or palpitations. No nausea or vomiting. No fever or chills. Looking forward to going home. General: [non toxic], [no distress], [appears at stated age] Derm: [warm], [dry] Head: [atraumatic], [normocephalic], [symmetric] Eyes: [EOMI], [no lid lag], [anicteric sclera] Mouth: [no lip lesion], [mucus membranes moist] Cardiovascular: [S1S2 reg], [no murmur], [positive DP pulse bilateral] Lungs: [CTA bilateral], [no rhonchi, no rales] , [no accessory muscle use] Abdominal: [soft], [ nontender to palpation], [no guarding], [no appreciable organomegaly] Ext: [no gross muscle atrophy], [no edema], [no contractures] Neuro: [no focal neuro deficits] Psych: [Alert], [oriented], [appropriate affect] Assessment and Plan Chest pain, pleuritic, unlikely to be ACS Pre-DM with A1c of 5.8 Fibromyalgia Hypertension Hyperlipidemia Anxiety disorder/Depression/Bipolar Atypical, likely pleuritic given flu 2 weeks prior to presentation. Troponin less than 0.012 with EKG showing sinus rhythm with first degree AV block. Chest x-ray negative for acute changes. Plan: Trend 2 troponin/EKG to rule out ACS. Continue aspirin and Lipitor. Nitrostat as needed for chest pain. Telemetry monitoring. Stress is negative. Echocardiogram within normal limits. Follow c ardiology consultation. Fhlwy-mg-yyip glucose 101. A1c 5.8 in February 2018. Plan: Continue metformin. Levemir 10 units twice a day. Regular Accu-Cheks. Hypoglycemic precautions. Plan: Pain management with Tylenol, gabapentin, ibuprofen. Add Percocet as needed. BP 99/65. Plan: Continue lisinopril. Monitor vitals, adjust medications as necessary. Plan: Continue Lipitor and Fenofibrate. Follow lipid panel. Plan: Continue Klonopin as needed. Continue Pristiq ER. Continue Lamictal. Continue trazodone. Patient admitted for chest pain, cardiology on consult. ACS ruled out. Cardiology cleared. DC home today. Pertinent Studies: Stress test, echocardiogram, chest x-ray Patient Condition at Discharge: Stable Plan - Discharge Summary Discharge Rx Participant: No New Discharge Prescriptions: New Aspirin 81 mg PO DAILY chew Continue Aspirin EC [Ecotrin Low Dose] 81 mg PO DAILY PRN PRN Reason: Pain Atenolol/Chlorthalidone [Atenolol-Chlorthalidone 50-25] 1 tab PO DAILY lamoTRIgine [LaMICtal] 150 mg PO BID Fluticasone Nasal [place] [Flonase Nasal [place]] 1 spray EA NOSTRIL DAILY Ibuprofen [Motrin] 800 mg PO TID PRN PRN Reason: Pain Multivitamins, Thera [Multivitamin (formulary)] 1 tab PO DAILY Lisinopril [Zestril] 20 mg PO DAILY Loratadine [Claritin] 10 mg PO DAILY Famotidine [Pepcid] 20 mg PO DAILY Calcium Carbonate 500 mg PO DAILY Albuterol Inhaler [Ventolin Hfa Inhaler] 1 - 2 puff INHALATION RT-QID PRN PRN Reason: Shortness Of Breath Atorvastatin Calcium [Lipitor] 10 mg PO DAILY Cholecalciferol [Vitamin D3 (25 Mcg = 1000 Iu)] 5,000 unit PO DAILY clonazePAM 0.5 mg PO TID PRN PRN Reason: Anxiety Desvenlafaxine [Pristiq ER] 100 mg PO DAILY Fenofibrate [Lofibra] 160 mg PO DAILY Gabapentin 600 mg PO BID Insulin Glargine [Lantus] 10 unit SQ BID metFORMIN HCL [Glucophage] 1,000 mg PO BID traZODone HCL 50 mg PO HS Discontinued Acetaminophen Tab [Tylenol] 650 mg PO Q4HR PRN tab PRN Reason: Pain/Discomfort Discharge Medication List Aspirin EC [Ecotrin Low Dose] 81 mg PO DAILY PRN 03/24/16 [History] Atenolol/Chlorthalidone [Atenolol-Chlorthalidone 50-25] 1 tab PO DAILY 03/24/16 [History] Fluticasone Nasal [place] [Flonase Nasal [place]] 1 spray EA NOSTRIL DAILY 04/04/16 [History] lamoTRIgine [LaMICtal] 150 mg PO BID 04/04/16 [History] Ibuprofen [Motrin] 800 mg PO TID PRN 07/23/16 [History] Albuterol Inhaler [Ventolin Hfa Inhaler] 1 - 2 puff INHALATION RT-QID PRN 03/06/18 [History] Calcium Carbonate 500 mg PO DAILY 03/06/18 [History] Famotidine [Pepcid] 20 mg PO DAILY 03/06/18 [History] Lisinopril [Zestril] 20 mg PO DAILY 03/06/18 [History] Loratadine [Claritin] 10 mg PO DAILY 03/06/18 [History] Multivitamins, Thera [Multivitamin (formulary)] 1 tab PO DAILY 03/06/18 [History] Atorvastatin Calcium [Lipitor] 10 mg PO DAILY 01/27/19 [History] Cholecalciferol [Vitamin D3 (25 Mcg = 1000 Iu)] 5,000 unit PO DAILY 01/27/19 [History] Desvenlafaxine [Pristiq ER] 100 mg PO DAILY 01/27/19 [History] Fenofibrate [Lofibra] 160 mg PO DAILY 01/27/19 [History] Gabapentin 600 mg PO BID 01/27/19 [History] Insulin Glargine [Lantus] 10 unit SQ BID 01/27/19 [History] clonazePAM 0.5 mg PO TID PRN 01/27/19 [History] metFORMIN HCL [Glucophage] 1,000 mg PO BID 01/27/19 [History] traZODone HCL 50 mg PO HS 01/27/19 [History] Aspirin 81 mg PO DAILY chew 01/28/19 [Rx] Follow up Appointment(s)/Referral(s): [facility] [Primary Care Provider] - 1-2 days Dmitri Hernandez MD [STAFF PHYSICIAN] - 02/25/19 3:30 pm (At [facility]. [facility] [id number] ) Activity/Diet/Wound Care/Special Instructions: Diet: Diabetic, heart healthy Follow-up with PCP within 1-2 days of discharge. Follow-up with cardiology with the appointment given to you. Take all medications as advised. Discharge Disposition: HOME SELF-CARE
== END 2019-01-28 17:00 | disposition home or self-care (01) ==
LOC: EC 13:57 → 1SOBS 15:20
PROVIDERS: ADMIT Family Medicine; ATTEND Family Medicine
DX: R07.89 Other chest pain (principal); R07.81 Pleurodynia; M79.7 Fibromyalgia; I10 Essential (primary) hypertension; E78.5 Hyperlipidemia, unspecified; F43.10 Post-traumatic stress disorder, unspecified; F41.0 Panic disorder [episodic paroxysmal anxiety]; F31.9 Bipolar disorder, unspecified; F41.9 Anxiety disorder, unspecified; I44.0 Atrioventricular block, first degree; G47.33 Obstructive sleep apnea (adult) (pediatric); E11.9 Type 2 diabetes mellitus without complications; Z99.89 Dependence on other enabling machines and devices; E66.01 Morbid (severe) obesity due to excess calories; Z68.42 Body mass index [BMI] 45.0-49.9, adult; Z79.82 Long term (current) use of aspirin; Z79.4 Long term (current) use of insulin; Z79.1 Long term (current) use of non-steroidal anti-inflammatories (NSAID); Z79.899 Other long term (current) drug therapy; Z91.012 Allergy to eggs; Z88.8 Allergy status to other drugs, medicaments and biological substances; Z91.048 Other nonmedicinal substance allergy status; Z87.01 Personal history of pneumonia (recurrent); Z90.49 Acquired absence of other specified parts of digestive tract; Z87.891 Personal history of nicotine dependence; Z82.0 Family history of epilepsy and other diseases of the nervous system; Z82.49 Family history of ischemic heart disease and other diseases of the circulatory system; Z81.8 Family history of other mental and behavioral disorders
CPT/HCPCS: 36415; 71046; 80053; 80061; 83735; 83880; 84484; 85025; 85379; 85610; 85730; 93005; 93306; 93351; 94760; 94762; 96365; 96376; 99291

== ENCOUNTER 2019-02-26 20:27 | Emergency (ER) | payer OTHER ==
[2019-02-26 20:50] VITALS: TEMP 98.2
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
[2019-02-26 22:05] LABS: Appearance,Urine Cloudy (Clear); Bacteria,Urine Rare /hpf; Bilirubin,Urine Negative (Negative); Blood,Urine Negative (Negative); Color,Urine Yellow; Glucose,Urine (UA) Negative (Negative); Hyaline Casts,Urine 1 /lpf (0-2); Ketones,Urine Negative (Negative); Leukocyte Esterase,Urine Large (Negative); Mucus,Urine Rare /hpf; Nitrite,Urine Negative (Negative); Protein,Urine Trace (Negative); RBC,Urine 3 /hpf (0-5); Specific Gravity,Urine 1.021 (1.001-1.035); Squamous Epithelial Cell,Urine 7 /hpf (0-4); Urobilinogen,Urine <2.0 mg/dL (<2.0); WBC,Urine 90 /hpf (0-5)
[2019-02-26 22:13] LABS: Amphetamine Screen,Urine Not Detected (NotDetected); Barbiturate Screen,Urine Not Detected (NotDetected); Benzodiazepines Screen,Urine Not Detected (NotDetected); Cocaine Screen,Urine Not Detected (NotDetected); Methadone Screen, Urine Not Detected (NotDetected); Opiate Screen,Urine Not Detected (NotDetected); Oxycodone Screen, Urine Not Detected (NotDetected); Phencyclidine Screen,Urine Not Detected (NotDetected); Tricyclic Antidepressant,Urine Not Detected (NotDetected); Urn Cannabinoid Scrn Not Detected (NotDetected)
[2019-02-26 23:30] LABS: Basophils % (A) 0 %; Eosinophils # (A) 0.1 k/uL (0-0.7); Eosinophils % (A) 1 %; HCT 35.3 % (34.0-46.0); HGB 11.4 gm/dL (11.4-16.0); Lymphocytes # (A) 2.5 k/uL (1.0-4.8); Lymphocytes % (A) 23 %; MCHC 32.4 g/dL (31.0-37.0); MCV 83.3 fL (80.0-100.0); Mean Platelet Volume 6.9; Monocytes # (A) 0.6 k/uL (0-1.0); Monocytes % (A) 5 %; Neutrophils # (A) 7.4 k/uL (1.3-7.7); Neutrophils % (A) 69 %; Platelet Count 327 k/uL (150-450); RBC 4.24 m/uL (3.80-5.40); RDW 14.8 % (11.5-15.5); WBC 10.7 k/uL (3.8-10.6)
[2019-02-26 23:37] LABS: ALT 54 U/L (9-52); AST 66 U/L (14-36); African American GFR (CKD) >90 (>60 ml/min/1.73 sqM); Albumin 4.2 g/dL (3.5-5.0); Alkaline Phosphatase 63 U/L (38-126); Anion Gap 9 mmol/L; Blood Urea Nitrogen 24 mg/dL (7-17); Calcium 9.7 mg/dL (8.4-10.2); Carbon Dioxide 31 mmol/L (22-30); Chloride 97 mmol/L (98-107); Glucose 159 mg/dL (74-99); Potassium 4.4 mmol/L (3.5-5.1); Sodium 137 mmol/L (137-145); Total Bilirubin 0.2 mg/dL (0.2-1.3)
[2019-02-27] MEDS ORDERED: IBUPROFEN 800 MG TAB PO STA (01:33)
[2019-02-27] MEDS ORDERED: ACETAMINOPHEN TAB 325 MG TAB PO STA (05:39)
[2019-02-27 05:44] VITALS: BP 105/53; PULSE 81; RESP 14
== END 2019-02-27 08:33 ==
LOC: EC 20:27
DX: F31.9 Bipolar disorder, unspecified (principal); R45.851 Suicidal ideations; E11.9 Type 2 diabetes mellitus without complications; E78.5 Hyperlipidemia, unspecified; M79.7 Fibromyalgia; I10 Essential (primary) hypertension; F41.0 Panic disorder [episodic paroxysmal anxiety]; F43.10 Post-traumatic stress disorder, unspecified; Z79.899 Other long term (current) drug therapy; Z79.4 Long term (current) use of insulin; Z91.012 Allergy to eggs; Z88.8 Allergy status to other drugs, medicaments and biological substances; Z91.048 Other nonmedicinal substance allergy status
CPT/HCPCS: 36415; 80053; 80306; 81001; 81025; 82075; 85025; 99285

== ENCOUNTER → 2019-07-25 | Outpatient (CLI) | payer OTHER ==
--- NOTE | 2019-07-25 10:55 | XR ---
EXAMINATION TYPE: XR hand complete bilateral DATE OF EXAM: 07/25/2019 CLINICAL HISTORY: Bilateral hand pain, possible arthritis. TECHNIQUE: Frontal, lateral and oblique images of the bilateral hands were obtained. COMPARISON: None. FINDINGS: There is no acute fracture/dislocation evident in either hand. The joint spaces in the phong ateral hands appear aligned. Very mild osseous neuroforaminal changes seen of the first carpometacarp al joint and distal interphalangeal joints of the right hand and left hand. Carpal carpal interspaces are maintained. There is slight negative ulnar variance of both hands. No ulnar styloid erosion. No suspicious osseous lesion. The overlying soft tissue appears unremarkable. IMPRESSION: 1. Mild arthropathy of both hands is in a typical distribution of osteoarthritis. 2. No acute fracture or dislocation in either hand. 3. Minimal negative ulnar variance bilaterally.
== END | disposition home or self-care (01) ==
LOC: RADXRWHC 10:02
PROVIDERS: ATTEND Nurse Practitioner
DX: M19.041 Primary osteoarthritis, right hand (principal); M19.042 Primary osteoarthritis, left hand